=== PATIENT | female | born 1960 | race Caucasian/White ===

== ENCOUNTER 2017-05-17 16:50 | Outpatient (CLI) | payer OTHER ==
[2015-10-30 16:28] VITALS: BP 151/83
[2017-05-17 17:24] LABS: eGFR (African) > 60; eGFR (Non-African) > 60
== END 2017-05-17 16:52 ==
LOC: LAB 16:50
PROVIDERS: ATTEND Family Medicine
DX: I10 Essential (primary) hypertension (principal)
CPT/HCPCS: 36415; 80048

== ENCOUNTER 2018-12-16 15:24 | Outpatient (CLI) | payer OTHER ==
[2017-05-17 16:56] VITALS: BP 151/83
== END 2018-12-16 15:27 ==
LOC: NEPHRO 15:24
PROVIDERS: ATTEND Internal Medicine Nephrology
DX: I12.9 Hypertensive chronic kidney disease with stage 1 through stage 4 chronic kidney disease, or unspecified chronic kidney disease (principal); E11.22 Type 2 diabetes mellitus with diabetic chronic kidney disease; N18.3 Chronic kidney disease, stage 3 (moderate); Z72.0 Tobacco use
CPT/HCPCS: 99214